=== PATIENT | female | born 1955 | race Caucasian/White ===

== ENCOUNTER 2020-05-09 11:52 | Inpatient (IN) | payer OTHER ==
[~2020-05-09] VITALS: Ht 165.1 cm; Wt 172.0 kg
[~2020-05-09 11:52] MED LIST: AMLODIPINE BESY10 MG; ANTIDEPRESSANT; BLOOD PRESSURE; CLEOCIN HCL300 MG PO; HYDROCHLOROTHIA25 M1; KEFLEX500 MG PO; LISINOPRIL40 MG; PERCOCET 5-3251 EACH PO; PERIDEX 0.12%473 M1 SSP; SYNTHROID300 MCG PO; [UNRECOGNIZED DRUG - OTHER]
[2020-05-09 11:53] VITALS: BP 161/89
[2020-05-09 12:37] LABS: HCO3 23.6 mmol/L (22.0-26.0); PCO2 39.1 mmHg (35.0-45.0); PO2 55.2 mmHg (80.0-100.0); pH 7.399 (7.360-7.450); sO2 88.8 % (92.0-98.0)
[2020-05-09 12:38] LABS: ABSOLUTE NEUTROPHILS 4.5 thou/uL (1.4-8.2); BASOPHILS 0.6 % (0.0-2.0); EOSINOPHILS 0.3 % (0.0-3.0); HEMATOCRIT 40.6 % (37.0-47.0); HEMOGLOBIN 13.3 gm/dL (12.0-15.0); MCH 28.1 pg (26.0-34.0); MCHC 32.7 g/dL (28.0-37.0); MCV 85.8 fL (80.0-100.0); MONOCYTES 5.4 % (1.0-8.0); PLATELET COUNT 189 thou/uL (150-400); POLYS 82.7 % (36.0-66.0); RBC 4.74 mil/uL (4.20-5.00); RDW 17.2 % (10.5-14.5); WBC 5.5 thou/uL (4.0-11.0)
[2020-05-09 12:47] LABS: ANION GAP 8 mmol/L (7-16); BUN 13 mg/dL (7-18); CALCIUM 7.8 mg/dL (8.5-10.1); CHLORIDE 102 mmol/L (98-107); CO2 30 mmol/L (21-32); CREATININE 1.3 mg/dL (0.6-1.0); GLUCOSE 102 mg/dL (74-106); POTASSIUM 3.8 mmol/L (3.5-5.1); SODIUM 140 mmol/L (136-145)
[2020-05-09 12:58] LABS: ALBUMIN 3.1 g/dL (3.4-5.0); SGOT 19 U/L (15-37); SGPT 10 U/L (30-65); TOTAL BILIRUBIN 0.3 mg/dL (0.2-1.0); TOTAL PROTEIN 7.6 g/dL (6.4-8.2); TROPONIN-I <0.06 ng/mL (<0.06)
[2020-05-09] MEDS ORDERED: TRIBENZOR 20-51 EACH PO (15:25)
[2020-05-09 15:31] VITALS: BP 126/67
[2020-05-09 20:30] VITALS: BP 122/57
[2020-05-10 04:05] VITALS: BP 123/82
[2020-05-10 07:00] LABS: ABSOLUTE NEUTROPHILS 3.7 thou/uL (1.4-8.2); BASOPHILS 0.4 % (0.0-2.0); HEMATOCRIT 41.6 % (37.0-47.0); HEMOGLOBIN 13.2 gm/dL (12.0-15.0); LYMPHOCYTES 9.5 % (24.0-44.0); MCH 27.8 pg (26.0-34.0); MCHC 31.6 g/dL (28.0-37.0); MCV 87.7 fL (80.0-100.0); MONOCYTES 4.4 % (1.0-8.0); PLATELET COUNT 193 thou/uL (150-400); POLYS 85.7 % (36.0-66.0); RBC 4.74 mil/uL (4.20-5.00); RDW 16.9 % (10.5-14.5); WBC 4.4 thou/uL (4.0-11.0)
[2020-05-10 07:22] LABS: ALBUMIN 2.9 g/dL (3.4-5.0); CALCIUM 7.6 mg/dL (8.5-10.1); CREATININE 1.2 mg/dL (0.6-1.0); MAGNESIUM 2.3 mg/dL (1.8-2.4); PHOSPHORUS 3.9 mg/dL (2.5-4.9); POTASSIUM 4.6 mmol/L (3.5-5.1); TOTAL BILIRUBIN 0.2 mg/dL (0.2-1.0); TOTAL PROTEIN 7.6 g/dL (6.4-8.2)
--- NOTE | 2020-05-10 07:53 | EKG ---
[facility] [place] [address] ELECTROCARDIOGRAM REPORT Name: CORETTA CARCAMO Room #: 364-P ADM IN M.R.#: [id number] Admission: 05/09/20 Attend Phys: Kiya Aguirre MD Discharge: Date of : 53 Report #: [id number] THIS REPORT FOR: cc: Lisa Diego Christine L. 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 Sprayer: ZACH : 1955 Requested By: Yanni Wilson Order Number: [id number] MD: Robin Costa Measurements Intervals [place] Rate: 88 P: 23 PA: 173 QRS: 25 QRSD: 91 T: 21 QT: 404 QTc: 489 Interpretive Statements Sinus rhythm with atrial premature complexes Abnormal R-wave progression, late transition Borderline prolonged QT interval Compared to ECG 07/19/2013 10:33:27 Atrial premature complexes are now present Electronically Signed On 05-10-2020 7:53:43 FENCE INSTALLER HELPER by Robin Costa [email or web address] <ELECTRONICALLY SIGNED> By: Robin Costa MD, FACC 05/10/20 0753 1210 1210 Robin Costa MD, FACC /EPI
[2020-05-10 08:54] VITALS: BP 159/102
[2020-05-10 11:26] VITALS: BP 146/101
--- NOTE | 2020-05-10 13:12 | NUR ---
INITIAL ASSESSMENT: Received consult. ZAN reviewed chart and spoke with nursing and attending physician. Pt was admitted from home due to acute respiratory failure. Pt placed in Enhanced Isolation. Pt is COVID positive. ID consulted. Pt has started course of Remdesivir. Pt with low grade fever and is requiring 4L of O2. Pt is on IV abx. ZAN spoke with pt via phone. Introduced role of SW. Pt is alert/orientated x 4. Pt report she lives at home alone. Prior to admission, pt was independent with ADLs. No use of DME. No hx of services or post-acute placement. Pt's PCP is Dr. Karlos Huff at [facility]. Pt reports she has active Medicare. Pt listed as not having insurance. SW confirmed pt's SS# and with pt. Medicare to be verified. ZAN is following to assist as needed with discharge planning.
--- NOTE | 2020-05-10 18:11 | NUR ---
VAT CONSULTED FOR A PICC, A 4FRDBL PLACED COVID PT'S ARE HIGHER RISK FOR DVT'S. PLEASE SEE NI FOR DETAILS
[2020-05-10 19:17] VITALS: BP 125/86
[2020-05-11] VITALS (7 sets, daily range): BP systolic 104–157; BP diastolic 68–110
--- NOTE | 2020-05-11 05:20 | NUR ---
CARE ASSUMED 1900. PT ALERT AND ORIENTED. VITALS STABLE. NO FEVER, SR ON THE MONITOR. O2 SATs > 95%. INDEPENDENT IN HER ROOM. ABOUT 0200, PT DEVELOPED SEVERE COUGH AND SOB. PT ALSO DEVELOPED CHEST PRESSURES . THIS WAS AFTER PT HAD SELF TRANSFERRED TO THE BATHROOM. EKG NORMAL. PT STABLE AFTER SETTLING. NO FURTHER EPISODES. WILL CONTINUE TO MONITOR AND FOLLOW POC.
[2020-05-11 06:37] LABS: ALBUMIN 2.7 g/dL (3.4-5.0); ANION GAP 7 mmol/L (7-16); BUN 20 mg/dL (7-18); CALCIUM 7.7 mg/dL (8.5-10.1); CHLORIDE 105 mmol/L (98-107); CO2 29 mmol/L (21-32); CREATININE 1.2 mg/dL (0.6-1.0); DIRECT BILIRUBIN < 0.1 mg/dL (<0.1-0.2); GLUCOSE 91 mg/dL (74-106); PHOSPHORUS 2.7 mg/dL (2.5-4.9); SGOT 25 U/L (15-37); SGPT 17 U/L (30-65); SODIUM 141 mmol/L (136-145); TOTAL BILIRUBIN 0.3 mg/dL (0.2-1.0); TOTAL PROTEIN 6.9 g/dL (6.4-8.2)
[2020-05-11 06:38] LABS: POTASSIUM 3.6 mmol/L (3.5-5.1)
--- NOTE | 2020-05-11 07:32 | EKG ---
[facility] [place] [address] ELECTROCARDIOGRAM REPORT Name: CORETTA CARCAMO Room #: 364- ADM IN M.R.#: [id number] Admission: 05/09/20 Attend Phys: Kiya Aguirre MD Discharge: Date of : 53 Report #: [id number] THIS REPORT FOR: cc: Lisa Diego Christine L. DO Santiago, Patrick MD [facility] ~ THIS REPORT FOR: //name// [facility] Test Date: 2020-05-11 Test Time: 03:20:52 Pat Name: CORETTA CARCAMO Department: Room: 364 Gender: F Systems Design Engineer: [id number] : 1955 Requested By: Kiya Aguirre Order Number: [id number] MD: Jordan Earl Measurements Intervals [place] Rate: 88 P: 22 VA: 185 QRS: -11 QRSD: 87 T: 37 QT: 413 QTc: 500 Interpretive Statements Sinus arrhythmia Borderline prolonged QT interval Baseline wander in lead(s) V5 Compared to ECG 05/09/2020 12:10:50 Sinus rhythm no longer present Atrial premature complex(es) no longer present Electronically Signed On 05-11-2020 7:32:44 COMPUTER GRAPHIC DESIGNER by Jordan Earl [email or web address] <ELECTRONICALLY SIGNED> By: Jordan Earl MD, FACC 05/11/20 0732 9 9 Jordan Earl MD, FACC /EPI
--- NOTE | 2020-05-11 12:07 | NUR ---
Received awake on bed. Due medications given as prescribed, able to swallow meds w/o difficulty. On O2 at 3lpm via nasal cannula. A+Ox4. On CCT, no complains and signs of chest pain, crushing sensation and heaviness. On regular diet- tolerating well; no nausea, no vomiting and no abdominal pain noted. Continent of bowel and bladder, able to go to the toilet independently. With double lumen PICC line at R upper arm; intact and flushing well; pt on multiple antibiotics.With cellulitis at [place] [facility]- advised pt to keep elevated. Pt for transfusion of Convalascent plasma- called blood bank, available already; pt's vital signs checked- with low grade fever, PRn tylenol given as prescribed- Temp rechecked 98.7; tansfusion done as per protocol, no untoward reactions noted. Patient seen and examined by Dr Bess- physician informed that pt's BP meds not restarted upon admission- will r/v meds. To continue monitoring patient. Complained of headache, PRN meds given as prescribed.
--- NOTE | 2020-05-11 13:39 | NUR ---
ORDERS RECEIVED FOR EVAL AND TREAT. SPOKE WITH Pt WHO STATES SHE IS UP AD MARIJA IN ROOM AND WALKS TO BATHROOM WITHOUT DIFFICULTY AND TRIES TO GET UP AND AMBULATE IN ROOM ON HER OWN SEVERAL TIMES A DAY. Pt DECLINING FORMAL P.T. EVAL STATING SHE FEELS SAFE WITH MOBILITY
--- NOTE | 2020-05-11 16:07 | NUR ---
SW reviewed chart and spoke with nursing and attending physician. Pt remains in Enhanced Isolation due to COVID-19. Pt had low grade fever and is on 3L of O2. Pt is on IV abx and IV steroids. Pt is completing course of Remdesivir. Plan is for pt to discharge home when medically stable. SW is following to assist as needed with discharge planning.
[2020-05-12 06:17] VITALS: BP 134/87
[2020-05-12 06:46] LABS: ALBUMIN 2.8 g/dL (3.4-5.0); DIRECT BILIRUBIN < 0.1 mg/dL (<0.1-0.2); SGOT 29 U/L (15-37); SGPT 22 U/L (30-65); TOTAL BILIRUBIN 0.3 mg/dL (0.2-1.0); TOTAL PROTEIN 7.2 g/dL (6.4-8.2)
--- NOTE | 2020-05-12 07:18 | NUR ---
ASSUMED CARE AT 1900, ASSESSMENT COMPLETED. PT DENIED PAIN OR NAUSEA OVERNIGHT. REPORTED SOB AND FATIGUE W/ACTIVITY. SB W/HR IN 50'S OVERNIGHT, HR BACK INTO 70'S ONCE PT AWAKE. IV ABX GIVEN VIA PICC. NO OTHER CONCERNS, SHIFT REPORT GIVEN AT 0700.
[2020-05-12 08:08] VITALS: BP 155/116
--- NOTE | 2020-05-12 08:52 | NUR ---
Nutrition: screen per BMI. Per charting, pt without GI symptoms. Intake avg about 75%. RFT's elevated, albumin low. Meds reviewed. Assessed at low nutrition risk at this time.
[2020-05-12 11:38] VITALS: BP 135/71
--- NOTE | 2020-05-12 15:13 | NUR ---
SW reviewed chart and spoke with nursing and attending physician. Pt remains in Enhanced Isolation due to COVID-19. Pt had low grade fever and is on 3L of O2. Pt is on IV abx and IV steroids. Pt is completing course of Remdesivir. Pt was not on O2 prior to admission. Will need rest/exercise oximetry completed prior to discharge. ZAN is following to assist as needed with discharge planning.
[2020-05-12 15:40] VITALS: BP 130/88
[2020-05-12 20:36] VITALS: BP 155/105
[2020-05-13 04:04] VITALS: BP 76/104
[2020-05-13 04:15] VITALS: BP 122/80
[2020-05-13 06:43] LABS: ALBUMIN 2.8 g/dL (3.4-5.0); CALCIUM 7.6 mg/dL (8.5-10.1); DIRECT BILIRUBIN 0.1 mg/dL (<0.1-0.2); PHOSPHORUS 3.3 mg/dL (2.5-4.9); POTASSIUM 3.9 mmol/L (3.5-5.1); TOTAL BILIRUBIN 0.1 mg/dL (0.2-1.0); TOTAL PROTEIN 6.5 g/dL (6.4-8.2)
--- NOTE | 2020-05-13 07:31 | NUR ---
ASSUMED CARE AT 1900. PT REPORTS FEELING VERY TIRED WITH ANY ACTIVITY. NO PAIN OVERNIGHT. FREQ DRY COUGH. SB IN 50'S OVERNIGHT. OVERNIGHT DESAT STUDY COMPLETED BY RT. NO OTHER CONCERNS, SHIFT REPORT GIVEN O700.
[2020-05-13 08:12] VITALS: BP 167/107
--- NOTE | 2020-05-13 09:01 | HC ---
[facility] [place] [address] CONSULTATION Name: CORETTA CARCAMO Room #: 364-P ADM IN M.R.#: [id number] Admission: 05/09/20 Attend Phys: Kiya Aguirre MD Discharge: Date of : 53 Report #: [id number] THIS REPORT FOR: cc: Lisa Diego,Hussein Ulloa MD ~ DATE OF SERVICE: 05/10/2020 WOUND CARE CONSULTATION PERSONAL PHYSICIAN: Dr. Lisa Diego. CHIEF COMPLAINT: Left lower extremity cellulitis. HISTORY OF PRESENT ILLNESS: This is a 64-year-old white female, who presented through the Emergency Department for shortness of breath and was diagnosed with COVID-19 pneumonia. The patient was noted upon admission, the patient to have bilateral lower extremity edema, which is chronic. She also has chronic venous stasis ulceration and it was noted to have a left lower extremity cellulitis as well. We have been asked to follow the patient for the left lower extremity ulceration. Nursing staff deny any other associated ulcerations. PAST MEDICAL HISTORY: Significant for hypertension, recurrent bilateral lower extremity cellulitis, chronic venous stasis, morbid obesity, and hypothyroidism. CURRENT MEDICATIONS: Multiple, I reviewed the patient's medication list. DRUG ALLERGIES: None. SOCIAL HISTORY: The patient does not smoke or drink alcohol. FAMILY HISTORY: Not pertinent to current medical condition. REVIEW OF SYSTEMS: CONSTITUTIONAL: The patient has history of low-grade fevers. NEUROLOGIC: The patient complains of overall generalized weakness. EYES: No complaints. ENT: The patient complaints of sinus drainage. Denies sore throat. CARDIAC: The patient has chronic lower extremity edema. RESPIRATORY: The patient denies wheezes, but has associated cough and mild shortness of breath with dyspnea on exertion. RESPIRATORY: The patient complains of pleuritic type chest pain. Has chronic edema in the lower extremities. GASTROINTESTINAL: The patient denies nausea, vomiting, or abdominal pain. [facility] [address] [place] [address] CONSULTATION Name: CORETTA CARCAMO Room #: 364-P [facility] IN [facility].#: [id number] Admission: 05/09/20 Attend Phys: Kiya Aguirre MD Discharge: Date of : 53 Report #: [id number] GENITOURINARY: The patient denies urgency or frequency. MUSCULOSKELETAL: No complaints. SKIN: There is a chronic ulceration on the left lower extremity. PHYSICAL EXAMINATION: VITAL SIGNS: Stable. The patient is afebrile. GENERAL: This is a morbidly obese female who is in no acute distress. HEENT: Normocephalic, atraumatic. Mucous membranes are moist. Pupils are round. Sclerae white. LUNGS: Slight diminished breath sounds heard throughout. NECK: Supple, nontender. HEART: Regular. ABDOMEN: Obese, soft, nontender. There is a candidal infection underneath the pannus. EXTREMITIES: The patient has 3+ edema bilateral lower extremities. There is chronic ulceration on the left lateral lower extremity with increased erythema, warmth and mild tenderness. There is minimal drainage, serosanguineous. Distal pulses are intact. NEUROLOGIC: Cranial nerves 2-12 grossly intact. Motor and sensory grossly intact. LABORATORY DATA: White count is 4.5, hemoglobin 13.2, and albumin 2.9. IMPRESSION: 1. Left lower extremity ulceration with associated cellulitis. 2. Venous insufficiency with edema. 3. COVID-19 pneumonia. 4. Protein-calorie malnutrition -- moderate with albumin 2.9. 5. Generalized debility. 6. Hypertension. PLAN: At this time, we will start Silvadene to the left lower extremity ulceration. Cover this with Xeroform, ABD, Kerlix and Ben. We will encourage the patient to elevate her legs as much as possible. We will attempt to maximize the patient's oral protein supplementation for healing. We will utilize physical and occupational therapy as the patient is able. We will continue all other current medications. <ELECTRONICALLY SIGNED> By: Hussein Tucker MD 05/13/20 0901 1532 1950 Hussein Tucker MD /nt
[2020-05-13 11:54] VITALS: BP 153/109
--- NOTE | 2020-05-13 16:00 | NUR ---
SW reviewed chart and spoke with nursing and attending physician. Pt remains in Enhanced Isolation due to COVID-19. Pt is afebrile and currently off O2. Pt is on IV abx and IV steroids. Pt is completing course of Remdesivir. Pt will need rest/exercise oximetry prior to discharge to determine if pt needs home O2. ZAN is following to assist as needed with discharge planning.
[2020-05-13 16:59] VITALS: BP 155/114
[2020-05-13 19:07] VITALS: BP 165/118
[2020-05-14] VITALS (7 sets, daily range): BP systolic 151–173; BP diastolic 84–114
--- NOTE | 2020-05-14 04:16 | NUR ---
SHE IS COMFORTABLE WITH ER BREATING, CONTINUES ON 3 LITERS N/C. DENIES PAIN. RESTING QUIETLY MOST OF THE NIGHT. BLOOD PRESSURES TRENDING UP TONIGHT. RECIEVED ORDER TO RESTART THE EQUIVILENT MEDICATIONS TO HER HOME MEDICATION. BLOOD PRESSURE IS UNDER CONTROL THIS MORNING. CAREPLAN REVIEWED.
[2020-05-14 05:43] LABS: BE(vivo) 4.1 mmol/L (-2 to +3); HCO3 30.4 mmol/L (22.0-26.0); PCO2 52.5 mmHg (35.0-45.0); PO2 76.9 mmHg (80.0-100.0); pH 7.381 (7.360-7.450)
[2020-05-14 05:46] LABS: HEMATOCRIT 39.3 % (37.0-47.0); HEMOGLOBIN 12.5 gm/dL (12.0-15.0); MCH 27.4 pg (26.0-34.0); MCHC 31.9 g/dL (28.0-37.0); RBC 4.57 mil/uL (4.20-5.00); RDW 16.7 % (10.5-14.5); WBC 3.3 thou/uL (4.0-11.0)
--- NOTE | 2020-05-14 12:59 | NUR ---
ZAN reviewed chart and spoke with nursing and attending physician. Pt remains in Enhanced Isolation due to COVID-19. Pt is afebrile and on 3L of O2. Pt is on IV abx and IV steroids. Pt to complete course of Remdesivir today. Unsure if pt will be ready for discharge over the weekend. ZAN spoke with pt via phone to discuss discharge plan. Pt is aware that she will likely need home O2 when discharged. Rest/exercise oximetry will need to be completed prior to discharge. ZAN discussed options fo DME providers. No preference voiced. ZAN confirmed pt's home address and phone number. Pt is currently staying in Room [address] at [facility]: [address] [facility] [id number]. ZAN discussed HH services. Pt declines need for HH. ZAN faxed face shee to [facility] [place] to check insurance coverage for home O2. Pt may need transportation when discharged. ZAN discussed with Director of Case Mgmt, who has authorized for transportation to be arranged with [facility] [employer]. Rest/exercise oximetry and order for oxygen will need to be faxed to [facility] [place] when available. ZAN is following to assist as needed with discharge planning. [facility]-- [facility]--
[2020-05-15 03:23] VITALS: BP 143/113
--- NOTE | 2020-05-15 04:15 | NUR ---
ASSUMED PT CARE AROUND 1900. A&OX4. NO C/O PAIN. UP AD MARIJA AROUND THE ROOM. UP TO BTR TO VOID. GOOD URINE OUTPUT. BP ELEVATED AT TIMES. SHE IS ON SCHEDULED BP MEDICATIONS. MILD SOA W/ EXERTION. REMAINS ON 3L NC. PROGRESSING SLOWLY TOWARD POC GOALS. WILL CONTINUE TO MONITOR FURTHER.
[2020-05-15 08:40] VITALS: BP 153/107
[2020-05-15 16:20] VITALS: BP 129/79
[2020-05-15 22:04] VITALS: BP 141/97
--- NOTE | 2020-05-16 03:53 | NUR ---
PAtient making slow progress towards outcome goals. Continues to require 3L oxygen to maintain adequate saturation. Vital signs and rhythm stable. Up adlib. Gait steady.
[2020-05-16 04:50] VITALS: BP 139/94
[2020-05-16 07:53] VITALS: BP 147/95
[2020-05-16] MEDS ORDERED: VITAMIN B-1100 M2 PO (11:05)
[2020-05-16] MEDS ORDERED: ACEROLA C500 MG PO (11:05)
[2020-05-16] MEDS ORDERED: ZINC SULFATE 2220 MG PO (11:05)
[2020-05-16] MEDS ORDERED: TYLENOL EXTRA500 MG PO (11:05)
[2020-05-16] MEDS ORDERED: VITAMIN D325 MC1 PO (11:05)
[2020-05-16] MEDS ORDERED: COMBIVENT RESPIM4 GM INH (11:05)
[2020-05-16] MEDS ORDERED: PREDNISONE 5 MG5 MG PO (11:05)
[2020-05-16] MEDS ORDERED: PEPCID20 MG PO (11:05)
[2020-05-16] MEDS ORDERED: CEFUROXIME500 MG PO (11:05)
[2020-05-16] MEDS ORDERED: SSD CREAM 1% 5050 GM TOP (11:05)
[2020-05-16 11:47] LABS: ABSOLUTE NEUTROPHILS 5.7 thou/uL (1.4-8.2); BASOPHILS 0.4 % (0.0-2.0); EOSINOPHILS 0.7 % (0.0-3.0); HEMATOCRIT 42.2 % (37.0-47.0); HEMOGLOBIN 13.5 gm/dL (12.0-15.0); LYMPHOCYTES 7.9 % (24.0-44.0); MCH 27.5 pg (26.0-34.0); MCV 85.9 fL (80.0-100.0); MONOCYTES 6.8 % (1.0-8.0); PLATELET COUNT 248 thou/uL (150-400); POLYS 84.2 % (36.0-66.0); RBC 4.92 mil/uL (4.20-5.00); RDW 16.8 % (10.5-14.5); WBC 6.8 thou/uL (4.0-11.0)
--- NOTE | 2020-05-16 16:37 | NUR ---
RN ASSUMED PT'S CARE AT 0700AM,PT IS A&OX3, PT'S VS ARE STABLE, PT IS CONTINUING IV ABX, RN RECEIVED DR ORDER TO DC PT TO HOME WITH HOME HEALTH, RN HAS CONTACT SW TO HELP PT GETS O2 AT HOME AND SETS UP HOME HEALTH SERVICE, RN HAS DONE PT'S L LE WOUND CARE AND GAVE DC TEACHING , PT UNDERSTANDED WELL , PT 'S FAMILY LICENSED PSYCHIATRIC TECHNICIAN PT ABOUT 1630PM.
== END 2020-05-16 16:30 | disposition home health service (06) | DRG 871 ==
LOC: ER 11:52 → EROBS 14:40 → 3W 14:40
PROVIDERS: Internal Medicine; Physician Assistant; ADMIT Internal Medicine; ATTEND Internal Medicine
DX: A41.89 Other specified sepsis (principal); U07.1 COVID-19; J96.01 Acute respiratory failure with hypoxia; J12.9 Viral pneumonia, unspecified; J15.9 Unspecified bacterial pneumonia; L03.116 Cellulitis of left lower limb; L97.929 Non-pressure chronic ulcer of unspecified part of left lower leg with unspecified severity; Z68.44 Body mass index [BMI] 60.0-69.9, adult; E44.0 Moderate protein-calorie malnutrition; B37.89 Other sites of candidiasis; I87.8 Other specified disorders of veins; E66.01 Morbid (severe) obesity due to excess calories; G47.33 Obstructive sleep apnea (adult) (pediatric); E03.9 Hypothyroidism, unspecified; F12.90 Cannabis use, unspecified, uncomplicated; K21.9 Gastro-esophageal reflux disease without esophagitis; I10 Essential (primary) hypertension; Z90.49 Acquired absence of other specified parts of digestive tract; Z90.710 Acquired absence of both cervix and uterus; Z79.899 Other long term (current) drug therapy
CPT/HCPCS: 10080; 10879; 27000

== ENCOUNTER 2020-12-12 13:41 | Inpatient (IN) | payer OTHER ==
[~2020-12-12] VITALS: Ht 177.8 cm; Wt 163.3 kg
[2020-12-12] VITALS (8 sets, daily range): BP systolic 158–211; BP diastolic 80–133
[~2020-12-12 13:41] MED LIST changes: +ACEROLA C500 MG PO; +CEFUROXIME500 MG PO; +COMBIVENT RESPIM4 GM INH; +PEPCID20 MG PO; +PREDNISONE 5 MG5 MG PO; +SSD CREAM 1% 5050 GM TOP; +TRIBENZOR 20-51 EACH PO; +TYLENOL EXTRA500 MG PO; +VITAMIN B-1100 M2 PO; +VITAMIN D325 MC1 PO; +ZINC SULFATE 2220 MG PO
[2020-12-12] MEDS ORDERED: LISINOPRIL20 MG PO (14:00)
[2020-12-12] MEDS ORDERED: LEVO-T100 MCG PO (14:01)
[2020-12-12 15:07] LABS: ABSOLUTE NEUTROPHILS 4.6 thou/uL (1.4-8.2); BASOPHILS 1.1 % (0.0-2.0); HEMATOCRIT 45.6 % (37.0-47.0); LYMPHOCYTES 19.9 % (24.0-44.0); MCH 28.7 pg (26.0-34.0); MCV 86.8 fL (80.0-100.0); MONOCYTES 5.7 % (1.0-8.0); PLATELET COUNT 227 thou/uL (150-400); POLYS 70.3 % (36.0-66.0); RBC 5.25 mil/uL (4.20-5.00); RDW 18.1 % (10.5-14.5); WBC 6.5 thou/uL (4.0-11.0)
[2020-12-12 15:10] LABS: ANION GAP 9 mmol/L (7-16); BUN 9 mg/dL (7-18); CALCIUM 8.7 mg/dL (8.5-10.1); CHLORIDE 104 mmol/L (98-107); CO2 29 mmol/L (21-32); GLUCOSE 93 mg/dL (74-106); POTASSIUM 3.9 mmol/L (3.5-5.1); SODIUM 142 mmol/L (136-145)
[2020-12-12 15:25] LABS: ALBUMIN 3.5 g/dL (3.4-5.0); SGOT 14 U/L (15-37); SGPT 17 U/L (14-59); TOTAL BILIRUBIN 0.9 mg/dL (0.2-1.0); TOTAL PROTEIN 7.3 g/dL (6.4-8.2); TROPONIN-I <0.06 ng/mL (<0.06)
[2020-12-12 18:07] LABS: URINE BILIRUBIN NEGATIVE (Negative); URINE BLOOD NEGATIVE (Negative); URINE CLARITY CLEAR; URINE COLOR YELLOW; URINE GLUCOSE-RANDOM* NEGATIVE (Negative); URINE KETONES NEGATIVE (Negative); URINE LEUKOCYTES-REFLEX NEGATIVE (Negative); URINE NITRITE-REFLEX NEGATIVE (Negative); URINE PROTEIN (DIPSTICK) NEGATIVE (Negative); URINE UROBILINOGEN 0.2 E.U./dl (0.2-1.0)
[2020-12-12 18:39] LABS: CHOLESTEROL 174 mg/dL (<200); HDL CHOLESTEROL 40 mg/dL (>40); LDL CHOLESTEROL 94 mg/dL (<100); TC:HDL 4.4 Ratio (Not establshd); TRIGLYCERIDE 200 mg/dL (<150); VLDL 40 mg/dL (<40)
--- NOTE | 2020-12-12 21:46 | NUR ---
NURSE CONTACTED MANAGER HIV ABOUT PATIENTS HYPERTENSION AND WAS INSTRUCTED TO MONITOR WITH PARAMETERS GIVEN FOR PERMISSIVE HYPERTENSION. NURSE TO CONTACT PROVIDER FOR SYSTOLIC > 200.
[2020-12-13] VITALS (25 sets, daily range): BP systolic 106–216; BP diastolic 53–146
[2020-12-13 04:53] LABS: HEMATOCRIT 42.3 % (37.0-47.0); HEMOGLOBIN 13.8 gm/dL (12.0-15.0); MCH 28.3 pg (26.0-34.0); MCHC 32.6 g/dL (28.0-37.0); RBC 4.86 mil/uL (4.20-5.00); RDW 17.7 % (10.5-14.5); WBC 5.4 thou/uL (4.0-11.0)
[2020-12-13 05:06] LABS: CALCIUM 8.4 mg/dL (8.5-10.1); CREATININE 0.9 mg/dL (0.6-1.0); POTASSIUM 3.7 mmol/L (3.5-5.1)
--- NOTE | 2020-12-13 07:17 | EKG ---
[address] [place] [address] ELECTROCARDIOGRAM REPORT Name: CORETTA CARCAMO Room #: 208-P ADM IN M.R.#: [id number] Admission: 12/12/20 Attend Phys: Lilliana Robins MD Discharge: Date of : 53 Report #: [id number] [facility] ED Test Date: 2020-12-12 Test Time: 15:15:11 Pat Name: CORETTA CARCAMO Department: Room: 208 Gender: F Chain Maker Loom Control: gudelia : 1955 Requested By: Ck Lincoln Order Number: [id number] MD: Jordan Earl Measurements Intervals [place] Rate: 67 P: 33 [place]: 169 QRS: -12 QRSD: 91 T: 26 QT: 438 QTc: 463 Interpretive Statements Sinus rhythm Probable left atrial enlargement Left ventricular hypertrophy Compared to ECG 05/11/2020 03:20:52 Left ventricular hypertrophy now present Sinus arrhythmia no longer present Electronically Signed On 12-13-2020 7:17:18 CDT by Jordan Earl [email or web address] <ELECTRONICALLY SIGNED> By: Jordan Earl MD, [facility] 12/13/20 0717 14 14 Jordan Earl MD, [facility] /EPI
--- NOTE | 2020-12-13 09:27 | 2DMMODE ---
[facility] [place] [address] 2 D/M-MODE ECHOCARDIOGRAM Name: CORETTA CARCAMO Room #: 208-P ADM IN M.R.#: [id number] Admission: 12/12/20 Attend Phys: Lilliana Robins MD Discharge: Date of : 53 Report #: [id number] THIS REPORT FOR: cc: Karlos Huff Brady DO Santiago, Patrick MD [facility] ~ APPROVED REPORT Study performed: 12/13/2020 08:27:34 EXAM: Comprehensive 2D, Doppler, and color-flow Echocardiogram Patient Location: Bedside Room #: 208 Status: routine BSA: 2.68 HR: 73 bpm BP: 180/138 mmHg Rhythm: Sinus arrhythmia Other Information Study Quality: Good Indications CVA, hypertension. Hx: HTN, COVID-19 2D Dimensions RVDd: 40.00 mm IVSd: 14.00 (7-11mm) LVOT Diam: 23.00 (18-24mm) LVDd: 51.00 mm PWd: 14.00 (7-11mm) Ascending Ao: 45.00 (22-36mm) LVDs: 38.00 (25-40mm) Left Atrium: 39.00 (27-40mm) Aortic Root: 38.00 mm Volumes Left Atrial Volume (Systole) Single Plane 4CH: 74.04 mL Single Plane 2CH: 83.64 mL LA ESV Index: 31.00 mL/m2 Aortic Valve AoV Peak Danie.: 1.39 m/s AO Peak Gr.: 7.73 mmHg LVOT Max P.86 mmHg LVOT Max V: 1.10 m/s [facility] [address] [place] [address] 2 D/M-MODE ECHOCARDIOGRAM Name: RANDALHERBIECORETTA L Room #: 208-P [facility] IN [facility]#: [id number] Admission: 12/12/20 Attend Phys: Lilliana Robins MD Discharge: Date of : 53 Report #: [id number] Vmax: 3.26 cm2 Mitral Valve E/A Ratio: 0.7 MV Decel. Time: 275.55 ms MV E Max Danie.: 0.65 m/s MV A Danie.: 0.98 m/s MV PHT: 79.91 ms IVRT: 87.66 ms Pulmonary Valve PV Peak Danie.: 0.78 m/s PV Peak Gr.: 2.46 mmHg Pulmonary Vein P Vein S: 0.56 m/s P Vein D: 0.40 m/s P Vein S/D Ratio: 1.40 Tricuspid Valve TR Peak Danie.: 2.64 m/s RAP Estimate: 5.00 mmHg TR Peak Gr.: 28.00 mmHg PA Pressure: 33.00 mmHg Left Ventricle The left ventricle is normal size. There is normal LV segmental wall motion. Mild to moderate concentric left ventricular hypertrophy. Left ventricular systolic function is normal. LVEF is 60-65%. Mild diastolic dysfunction is present (impaired relaxation pattern). Right Ventricle The right ventricle is normal size. The right ventricular systolic function is normal. Atria The left atrium size is normal. No shunting noted with contrast bubble injection. Right atrium is at the upper limits of normal. Aortic Valve Aortic valve is minimally calcified; trileaflet. Trace aortic regurgitation. There is no aortic valvular stenosis. Mitral Valve The mitral valve is normal in structure. Mild mitral annular calcification. Trace mitral regurgitation. [facility] [place] [address] 2 D/M-MODE ECHOCARDIOGRAM Name: CORETTA CARCAMO Room #: 208-P [facility] IN .R.#: [id number] Admission: 12/12/20 Attend Phys: Lilliana Robins MD Discharge: Date of : 53 Report #: [id number] Tricuspid Valve The tricuspid valve is normal in structure. Mild tricuspid regurgitation. Estimated PAP is 30-35mmHg. Pulmonic Valve Pulmonic valve is not well visualized. Great Vessels Aortic root is mildly dilated. The ascending aorta is moderately dilated (4.5cm). IVC is normal in size and collapses >50% with inspiration. Pericardium There is no pericardial effusion. <Conclusion> Normal left ventricular size with mild to moderate concentric hypertrophy Ejection fraction 60% Grade 1 diastolic dysfunction Normal right ventricular size/function Normal atrial size Mild aortic valve calcification Trace aortic/mitral valve insufficiency Mild tricuspid valve insufficiency Pulmonary systolic pressure estimated 35 mmHg No pericardial effusion Aortic root mildly dilated No evidence of ASD VSD by color flow/bubble study Ascending aortic aneurysm estimated at 4.5 cm <ELECTRONICALLY SIGNED> By: Jordan Earl MD, FACC 12/13/20925 5 5 Jordan Earl MD, FACC /INF
--- NOTE | 2020-12-13 11:26 | NUR ---
PATIENT CONTINUED TO C/O L SIDED HEAD ACHE, MILD PAIN RATING. SHE STATED TYLENOL PRN HELPED "A LITTLE BIT." BP ELEVATED THIS MORNING, DISCUSSED WITH MD. SCHEDULED MEDICATIONS GIVEN. UPON MANUAL AND MACHINE RECHECK PATIENT'S BP HAD NOT IMPROVED, SO PRN HYDRALAZINE WAS GIVEN. ONE HOUR LATER HER BP HAD NOT IMPROVED BUT 10 POINTS. PHYSICIAN PAGED FOR FURTHER ORDERS, WAITING FOR RESPONSE. PATIENT ABOUT TO TRANSFER TO MRI VIA WHEELCHAIR.
--- NOTE | 2020-12-13 13:19 | NUR ---
MRI CANCELLED, DISCUSSED WITH NEUROLOGY MD [id number]. COREG PO GIVEN TO PATIENT PER DR. NJ'S ORDER. WILL RECHECK BP AFTER TO ASSESS. PATIENT EXHIBITING CONSTANT, SLIGHTLY WORSENED HEAD ACHE AND SOME DIZZINESS/LIGHTHEADEDNESS WITH AMBULATING OR SITTING UP IN BED.
--- NOTE | 2020-12-13 13:21 | NUR ---
PT LVIES HOME ALONE. PT HAS 0 STAIRS TO NAVIGATE. PT IS EMPLOYEED AND ACTIVE. PT IS INDEPENDENT WITH ADLS. PT HAS NO DMES. PT DENIES HX WITH HH OR SNF. PT IS HAVING STORKE WORK UP AND WILL HAVE MRI, BP IS HIGH. CM TO CONT TO FOLLOW.
--- NOTE | 2020-12-13 15:03 | NUR ---
CARDENE GTT STARTED AT 5MG/HR AT 1436 FOR BP 205/125 CARDENE GTT INCREASED TO 7.5MG/HR AT 1450 FOR BP 187/121 CARDENE GTT INCREASED TO 10MG/HR AT 1500 FOR BP 181/118
--- NOTE | 2020-12-13 18:29 | NUR ---
UPDATE ON CARDENE GTT TITRTATIONS: AT 1540 CARDENE GTT DECREASED TO 7.5MG/HR FOR BP 145/89 AT 1545 CARDENE GTT DECREASED TO 5MG/HR FOR BP 106/53- PATIENT ASYMPTOMATIC BP INCREASED QUICKLY BACK TO 135/77 INITIALLY AND AT 1730 WE ACHIEVED GOAL BP PARAMETERS WITH BP BEING 154/109. CARDENE GTT RUNNING AT 5MG/HR AT END OF SHIFT. PATIENT REPORTS HER HEADACHE BEING GONE.
--- NOTE | 2020-12-13 18:39 | NUR ---
PATIENT'S BP AT 1837 134/79, CARDENE GTT TITRATED DOWN TO 2.5MG/HR. WILL CONTINUE TO MONITOR BP CLOSELY.
[2020-12-13 23:06] LABS: GLYCOHEMOGLOBIN (HGB A1C) 5.6 % (4.8-5.6)
[2020-12-14] VITALS (19 sets, daily range): BP systolic 125–160; BP diastolic 67–109
--- NOTE | 2020-12-14 11:00 | NUR ---
CARDENE WEANED OFF AT 1000. BP AT THIS TIME WAS 125/86. BP ON RECHECK AT 1050 WAS 133/89 (MANUALLY). WILL CONTINUE TO MONITOR.
[2020-12-14 20:06] LABS: APTT 27.9 Seconds (24.5-32.8); INR 1.01
[2020-12-15 04:56] VITALS: BP 121/61
[2020-12-15 07:47] VITALS: BP 126/84
[2020-12-15 11:13] VITALS: BP 115/86
[2020-12-15] MEDS ORDERED: ADULT LOW DOSE81 MG PO (11:29)
[2020-12-15] MEDS ORDERED: COREG6.25 MG PO (11:29)
[2020-12-15] MEDS ORDERED: CLOPIDOGREL75 MG PO (11:29)
[2020-12-15] MEDS ORDERED: LIPITOR40 MG PO (11:29)
[2020-12-15 13:17] VITALS: BP 115/86
--- NOTE | 2020-12-15 13:54 | NUR ---
ASSESSMENT CHARTED - MEDS PER SEP - NO CO'S OF PAIN OR NAUSEA- JOSEPH DIET AND FLUIDS. UP AD MARIJA IN ROOM STEADY ON FEET. PT HOME THIS AFTERNOON. INSTRUCTION RE HOME MEDS/ CARE AND FOLLOW UP GIVEN TO PATIENT - STATED UNDERSTANDING OF INSTRUCTION GIVEN. PT LEFT UNIT VIA WHEELCHAIR - HOME VIA UBER. NO CO'S AT TIME OF DD/C.
--- NOTE | 2020-12-16 14:16 | HC ---
[facility] [place] [address] CONSULTATION Name: CORETTA CARCAMO Room #: 208-P [facility] .R.#: [id number] Admission: 12/12/20 Attend Phys: Lilliana Robins MD Discharge: 12/15/20 Date of : 53 Report #: [id number] THIS REPORT FOR: cc: Karlos Huff Brady DO Khosla,Arash Mitchell MD ~ DOC #: [id number] Arash Day MD DATE OF SERVICE: 12/12/2020 HISTORY OF PRESENT ILLNESS: This is a 65-year-old female patient who is admitted with headache, uncontrolled hypertension and multiple transient symptoms, which are difficult to define. At one time, she noticed she was weak, but she does not remember which side. She had some dizziness. Dizziness is also better. She underwent a CT scan and I reviewed the films. CT scan does not look too bad, but the question of small lacunar CVA is there. CT is not very accurate to rule out the artifact as well as to tell us the age of lacunar CVA. 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 The patient is feeling better. Her symptoms are better. Usually, her blood pressure runs about 130-140. She did not take her antihypertensive today for some reason. Usually, she takes it in the morning. They did give her some labetalol in the Emergency Room. REVIEW OF SYSTEMS: A 14-point review of system was carried out and she was having some ____ she had a history of hypertension and morbid obesity. She had some neck pain. She had some eye burning. That was a relevant 14-point review of system. PAST MEDICAL HISTORY: Negative for any stroke. FAMILY HISTORY: Positive for myocardial infarction. SOCIAL HISTORY: She smokes marijuana. 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 It is a stressful job, but she has ____ done it from last several years. PHYSICAL EXAMINATION: The patient's examination indicate she is alert. She is responsive. She is able to follow simple and complex commands. Cranial nerve examination is unremarkable. Neuromuscular examination is difficult to carry out because of her cellulitis, but her position sense looks intact. There is no carotid bruit. There is no meningeal sign. Cardiovascular respiratory examination is unremarkable. Blood pressure running as 189/112. LABORATORY DATA: White count is normal. IMPRESSION: The patient's CT showed a question of lacunar CVA that need further evaluation by MRI. A CT angiogram shows basilar artery stenosis, but that needs [address] [address] CONSULTATION Name: CORETTA CARCAMO Room #: 208-P [facility].#: [id number] Admission: 12/12/20 Attend Phys: Lilliana Robins MD Discharge: 12/15/20 Date of : 53 Report #: [id number] to be managed conservatively. It is tough to tell if the patient had a transient ischemic stroke or not, but with this basilar artery stenosis I will use a combination of aspirin and Plavix for 21 days, but then Plavix. This patient need to lose weight in control of vascular risk factor. She should not do what she did today where she missed a dose of medication because fluctuating blood pressure is worse then hypertension from neurological perspective. We will do some other basic blood workup, which were ordered. More than 50 minutes of time was spent taking care of this patient today and majority was spent reviewing her records, her imaging studies, residential youth counselor and coordinating. The patient was also discussed with the Emergency Room physician. Arash Day MD PK/SABINA/JA <ELECTRONICALLY SIGNED> By: Arash Day MD 12/16/20 1416 1622 2140 Arash Day MD /nt
== END 2020-12-15 13:55 | disposition home or self-care (01) | DRG 65 ==
LOC: ER 13:41 → EROBS 16:28 → 2N 16:28
PROVIDERS: Emergency Medicine; Psychiatry & Neurology Neuromuscular Medicine; ADMIT Internal Medicine; ATTEND Internal Medicine
DX: I63.89 Other cerebral infarction (principal); Z68.43 Body mass index [BMI] 50.0-59.9, adult; I10 Essential (primary) hypertension; F12.90 Cannabis use, unspecified, uncomplicated; E66.01 Morbid (severe) obesity due to excess calories; E03.9 Hypothyroidism, unspecified; Z79.899 Other long term (current) drug therapy
CPT/HCPCS: 10081